=== PATIENT | male | born 1960 | race Caucasian/White ===

== ENCOUNTER 2019-01-05 11:54 | Emergency (ER) | payer BC ==
--- NOTE | 2019-01-05 12:49 | RAD REPORT ---
EXAM DESCRIPTION: CT - Head Brain Wo Cont - 01/05/2019 12:38 pm CLINICAL HISTORY: HEADACHE Headache, drowsiness, nausea COMPARISON: <Comparisons> TECHNIQUE: All CT scans are performed using dose optimization technique as appropriate and may inclu de automated exposure control or mA/KV adjustment according to patient size. FINDINGS: No intracranial hemorrhage, hydrocephalus or extra-axial fluid collection.Mild generalized brain atrophy is present with mild periventricular and deep white matter chronic microvascular ische bonifacio changes.No areas of brain edema or evidence of midline shift. The paranasal sinuses and mastoids are clear. The calvarium is intact. IMPRESSION: No acute intracranial abnormality.
[2019-01-05 13:48] LABS: Absolute Lymphocytes (CBC) 1.6 K/uL (0.7-4.9); Absolute Monocytes 1.1 K/uL (0.1-1.3); Absolute Neutrophil 7.8 K/uL (1.8-8.0); Basophils % 0.2 % (0-1.3); Eosinophils % 0.7 % (0-4.4); Lymphocytes % 15.2 % (15.3-44.8); MPV 9.5 fL (7.6-11.3); Monocytes % 10.2 % (3.3-12.3); RBC Red Blood Cell Count 5.05 M/uL (4.33-5.43)
[2019-01-05] MEDS ORDERED: METOCLOPRAMIDE 10 MG/2mL INJ ONE (13:53)
[2019-01-05] MEDS ORDERED: DIPHENHYDRAMINE 50 MG/ML VIAL ONE (13:54)
[2019-01-05] MEDS ORDERED: NA CHLORIDE 0.9% 100 ML IV ONE (13:54)
[2019-01-05] MEDS ORDERED: KETOROLAC 30 MG/ML INJ ONE (13:54)
[2019-01-05] MEDS ORDERED: NA CHLORIDE 0.9% 1,000 ML ONE (13:54)
[2019-01-05] MEDS ORDERED: MORPHINE 4 MG/ML SYR ONE (14:49)
[2019-01-05 15:35] LABS: Albumin 3.9 g/dL (3.4-5.0); Bilirubin Total 0.5 mg/dL (0.2-1.0); Potassium 4.5 mmol/L (3.5-5.1); Protein, Total 8.6 g/dL (6.4-8.2)
--- NOTE | 2019-01-05 16:04 | RAD REPORT ---
EXAM DESCRIPTION: CT - Head angio - 01/05/2019 3:52 pm CLINICAL HISTORY: HEADACHE Headache, nausea, drowsiness COMPARISON: Head Brain Wo Cont dated 01/05/2019 TECHNIQUE: CT angiography of the head was performed with MIPs. All CT scans are performed using dose optimization technique as appropriate and may include automated exposure control or mA/KV adjustment according to patient size. FINDINGS: No evidence of aneurysm is detected. No flow-limiting stenosis or vascular malformation id entified. Antegrade flow is seen in the vertebral arteries. The vertebral arteries are codominant. The visualized dural venous sinuses are patent. IMPRESSION: No significant flow abnormality is detected.
--- NOTE | 2019-01-05 16:10 | EDPHYS ---
Physician Documentation [facility] Name: Dixon Reyna Age: 58 yrs Sex: Male : 1960 Arrival Date: 01/05/2019 Time: 11:56 Bed 26 Private MD: ED Physician Jefferson Barber HPI: 01/05 13:22 This 58 yrs old Male presents to ER via Ambulatory with complaints of catie Headache. 13:22 The patient complains of pain to the forehead, left frontal area and right frontal catie area. The patient describes the headache as aching, constant. Onset: The symptoms/episode began/occurred 2 day(s) ago. Associated signs and symptoms: The patient has no apparent associated signs or symptoms. Severity of symptoms: At its worst the pain was moderate, in the emergency department the pain is unchanged. Headache History: The patient has had previous headaches and this one is similar to previous episodes. The symptoms are alleviated by remaining still. The patient has not experienced similar symptoms in the past. Historical: - Allergies: 12:03 No Known Allergies; tw2 - Home Meds: 12:03 "unknown bp med" [Active]; allopurinol 100 mg Oral tab 1 tab once daily [Active]; tw2 pravastatin 40 mg oral tab 1 tab once daily [Active]; - PMHx: 12:03 Hypertension; Hyperlipidemia; Gout; tw2 - Immunization history:: Adult Immunizations. - Social history:: Smoking status: . - Ebola Screening: : Patient denies travel to an Ebola-affected area in the 21 days before illness onset. - Family history:: not pertinent. ROS: 13:22 Constitutional: Negative for fever, chills, and weight loss, Eyes: Negative for injury, catie pain, redness, and discharge, ENT: Negative for injury, pain, and discharge, Neck: Negative for injury, pain, and swelling, Cardiovascular: Negative for chest pain, palpitations, and edema, Respiratory: Negative for shortness of breath, cough, wheezing, and pleuritic chest pain, Abdomen/GI: Negative for abdominal pain, nausea, vomiting, diarrhea, and constipation, Back: Negative for injury and pain, : Negative for injury, bleeding, discharge, and swelling, MS/Extremity: Negative for injury and deformity, Skin: Negative for injury, rash, and discoloration, Psych: Negative for depression, anxiety, suicide ideation, homicidal ideation, and hallucinations, Allergy/Immunology: Negative for hives, rash, and allergies, Endocrine: Negative for neck swelling, polydipsia, polyuria, polyphagia, and marked weight changes, Hematologic/Lymphatic: Negative for swollen nodes, abnormal bleeding, and unusual bruising. 13:22 Neuro: Positive for headache. Exam: 13:22 Constitutional: This is a well developed, well nourished patient who is awake, alert, catie and in no acute distress. Head/Face: Normocephalic, atraumatic. Eyes: Pupils equal round and reactive to light, extra-ocular motions intact. Lids and lashes normal. Conjunctiva and sclera are non-icteric and not injected. Cornea within normal limits. Periorbital areas with no swelling, redness, or edema. ENT: Nares patent. No nasal discharge, no septal abnormalities noted. Tympanic membranes are normal and external auditory canals are clear. Oropharynx with no redness, swelling, or masses, exudates, or evidence of obstruction, uvula midline. Mucous membranes moist. Neck: Trachea midline, no thyromegaly or masses palpated, and no cervical lymphadenopathy. Supple, full range of motion without nuchal rigidity, or vertebral point tenderness. No Meningismus. Chest/axilla: Normal chest wall appearance and motion. Nontender with no deformity. No lesions are appreciated. Cardiovascular: Regular rate and rhythm with a normal S1 and S2. No gallops, murmurs, or rubs. Normal PMI, no JVD. No pulse deficits. Respiratory: Lungs have equal breath sounds bilaterally, clear to auscultation and percussion. No rales, rhonchi or wheezes noted. No increased work of breathing, no retractions or nasal flaring. Abdomen/GI: Soft, non-tender, with normal bowel sounds. No distension or tympany. No guarding or rebound. No evidence of tenderness throughout. Back: No spinal tenderness. No costovertebral tenderness. Full range of motion. Male : Normal genitalia with no discharge or lesions. Skin: Warm, dry with normal turgor. Normal color with no rashes, no lesions, and no evidence of cellulitis. MS/ Extremity: Pulses equal, no cyanosis. Neurovascular intact. Full, normal range of motion. Neuro: Awake and alert, GCS 15, oriented to person, place, time, and situation. Cranial nerves II-XII grossly intact. Motor strength 5/5 in all extremities. Sensory grossly intact. Cerebellar exam normal. Normal gait. Psych: Awake, alert, with orientation to person, place and time. Behavior, mood, and affect are within normal limits. 13:22 Neck: ROM/movement: is normal, no acute changes, Meningeal signs: are not present, Kernig's sign is negative, Brudzinski's sign is negative. Vital Signs: 12:01 BP 139 / 80; Pulse 58; Resp 17; Temp 97.9(TE); Pulse Ox 98% on R/A; Weight 102.97 kg tw2 (R); Height 5 ft. 11 in. (180.34 cm); Pain 7/10; 13:06 BP 138 / 76; Pulse 59; Resp 16; Pulse Ox 99% on R/A; Pain 7/10; ls4 14:00 BP 145 / 87; Pulse 62; Resp 16; Pulse Ox 99% on R/A; Pain 5/10; ls4 15:39 BP 142 / 79; Pulse 60; Resp 16; Pulse Ox 99% on R/A; Pain 4/10; ls4 12:01 Body Mass Index 31.66 (102.97 kg, 180.34 cm) tw2 MDM: 13:07 Patient medically screened. [facility] 13:22 Data reviewed: vital signs, nurses notes, lab test result(s), radiologic studies, CT catie scan. 01/05 13:22 Order name: CBC with Diff; Complete Time: 14:19 [facility] 01/05 13:22 Order name: Comprehensive Metabolic Panel; Complete Time: 16:04 [facility] 01/05 12:05 Order name: CT Head Brain wo Cont; Complete Time: 13:20 01/05 13:22 Order name: CT Head Angio [facility] 01/05 13:53 Order name: Labs - recollect needed; Complete Time: 14:50 01/05 14:33 Order name: Labs - recollect needed; Complete Time: 14:49 bd Administered Medications: 13:50 Drug: Benadryl 25 mg Route: IVP; Site: right antecubital; ls4 14:20 Follow up: Response: No adverse reaction; Marked relief of symptoms ls4 13:51 Drug: NS 0.9% 1000 ml Route: IV; Rate: 1 bolus; Site: right antecubital; ls4 14:51 Follow up: IV Status: Completed infusion; IV Intake: 1010ml ls4 13:51 Drug: TORadol 30 mg Route: IVP; Site: right antecubital; ls4 14:20 Follow up: Response: No adverse reaction ls4 13:51 Drug: Reglan 20 mg Route: IVP; Site: right antecubital; ls4 14:20 Follow up: Response: No adverse reaction ls4 14:33 Drug: morphine 4 mg Route: IVP; Site: right antecubital; ls4 15:12 Follow up: Response: No adverse reaction; Marked relief of symptoms ls4 Disposition: 01/05/19 16:10 Discharged to Home. Impression: Headache, Essential (primary) hypertension. - Condition is Stable. - Discharge Instructions: General Headache Without Cause, Hypertension, Hypertension, Moya-[id number]-[id number], How to Take Your Blood Pressure, [id number]-kh-[id number], General Headache Without Cause, [id number]-lr-[id number], Managing Your Hypertension. - Prescriptions for Fioricet with Codeine 50- 325-40-30 mg Oral capsule - take 1 capsule by ORAL route every 4 hours as needed not to exceed 6 capsules per 24hrs; 24 capsule. Zofran 4 mg Oral Tablet - take 1 tablet by ORAL route every 12 hours As needed; 20 tablet. - Medication Reconciliation Form, Thank You Letter, Antibiotic Education, Prescription Opioid Use form. - Follow up: Private Physician; When: 2 - 3 days; Reason: Recheck today's complaints, Continuance of care, Re-evaluation by your physician. - Problem is new. - Symptoms have improved. Signatures: Dispatcher [employer] Kassandra Roberto Corey, MD MD cha Williams, Irene, RN RN iw Leanna Robins RN RN tw2 Simona Hood RN RN ls4 Corrections: (The following items were deleted from the chart) 16:55 16:10 01/05/2019 16:10 Discharged to Home. Impression: Headache; Essential (primary) ls4 hypertension. Condition is Stable. Discharge Instructions: General Headache Without Cause, General Headache Without Cause, [id number], Hypertension, Hypertension, Ckqc-xr-Rezn, How to Take Your Blood Pressure, Iusx-al-Aocc, Managing Your Hypertension. Prescriptions for Fioricet with Codeine 90-404-47-30 mg Oral capsule - take 1 capsule by ORAL route every 4 hours as needed not to exceed 6 capsules per 24hrs; 24 capsule, Zofran 4 mg Oral Tablet - take 1 tablet by ORAL route every 12 hours As needed; 20 tablet. and Forms are Medication Reconciliation Form, Thank You Letter, Antibiotic Education, Prescription Opioid Use. Follow up: Private Physician; When: 2 - 3 days; Reason: Recheck today's complaints, Continuance of care, Re-evaluation by your physician. Problem is new. Symptoms have improved. catie
--- NOTE | 2019-01-05 16:10 | ER ---
Nurse's Notes [facility] Name: Dixon Reyna Age: 58 yrs Sex: Male : 1960 Arrival Date: 01/05/2019 Time: 11:56 Bed 26 Private MD: Diagnosis: Headache;Essential (primary) hypertension Presentation: 01/05 11:59 Presenting complaint: Patient states: i have had a headache since Friday, Friday i tw2 was nauseous and throwing up, i have only had crackers and gatoraide since then, +abdominal pain, denies D. Transition of care: patient was not received from another setting of care. Onset of symptoms was January 05, 2019. Risk Assessment: Do you want to hurt yourself or someone else? Patient reports no desire to harm self or others. Initial Sepsis Screen: Does the patient meet any 2 criteria? No. Patient's initial sepsis screen is negative. Does the patient have a suspected source of infection? No. Patient's initial sepsis screen is negative. Care prior to arrival: None. 11:59 Method Of Arrival: Ambulatory tw2 11:59 Acuity: RANDALL 3 tw2 Triage Assessment: 12:00 Headache History: The patient has had previous headaches and this one is similar to tw2 previous episodes. General: Appears in no apparent distress. Behavior is calm, cooperative, appropriate for age. Pain: Pain currently is 7 out of 10 on a pain scale. Pain began 2-3 days ago. Also complains of nausea. Neuro: Reports headache. GI: Reports lower abdominal pain, upper abdominal pain, nausea. Historical: - Allergies: 12:03 No Known Allergies; tw2 - Home Meds: 12:03 "unknown bp med" [Active]; allopurinol 100 mg Oral tab 1 tab once daily [Active]; tw2 pravastatin 40 mg oral tab 1 tab once daily [Active]; - PMHx: 12:03 Hypertension; Hyperlipidemia; Gout; tw2 - Immunization history:: Adult Immunizations. - Social history:: Smoking status: . - Ebola Screening: : Patient denies travel to an Ebola-affected area in the 21 days before illness onset. - Family history:: not pertinent. Screenin:13 Abuse screen: Denies threats or abuse. Denies injuries from another. Nutritional ls4 screening: No deficits noted. Tuberculosis screening: No symptoms or risk factors identified. Fall Risk None identified. Assessment: 13:17 Pain:. ls4 13:17 Pain: Complains of pain in right frontal area and left frontal area and forehead Pain ls4 currently is 7 out of 10 on a pain scale. 13:17 Neuro: Level of Consciousness is awake, alert, obeys commands, Oriented to person, ls4 place, time, situation, Collet Maker are equal bilaterally. Respiratory: Airway is patent Respiratory effort is even, unlabored, Respiratory pattern is regular, Breath sounds are clear bilaterally. Musculoskeletal: No deficits noted. 14:30 Reassessment: Patient and/or family updated on plan of care and expected duration. Pain ls4 level reassessed. Patient is alert, oriented x 3, equal unlabored respirations, skin warm/dry/pink. 15:30 Reassessment: Patient and/or family updated on plan of care and expected duration. Pain ls4 level reassessed. Patient is alert, oriented x 3, equal unlabored respirations, skin warm/dry/pink. 16:30 Reassessment: Patient and/or family updated on plan of care and expected duration. Pain ls4 level reassessed. Patient is alert, oriented x 3, equal unlabored respirations, skin warm/dry/pink. Vital Signs: 12:01 BP 139 / 80; Pulse 58; Resp 17; Temp 97.9(TE); Pulse Ox 98% on R/A; Weight 102.97 kg tw2 (R); Height 5 ft. 11 in. (180.34 cm); Pain 7/10; 13:06 BP 138 / 76; Pulse 59; Resp 16; Pulse Ox 99% on R/A; Pain 7/10; ls4 14:00 BP 145 / 87; Pulse 62; Resp 16; Pulse Ox 99% on R/A; Pain 5/10; ls4 15:39 BP 142 / 79; Pulse 60; Resp 16; Pulse Ox 99% on R/A; Pain 4/10; ls4 12:01 Body Mass Index 31.66 (102.97 kg, 180.34 cm) tw2 ED Course: 11:56 Patient arrived in ED. mr 12:00 Triage completed. tw2 12:01 Arm band placed on. tw2 12:39 CT Head Brain wo Cont In Process Unspecified. EDMS 13:07 Jefferson Barber MD is Attending Physician. [facility] 13:13 Simona Hood, RN is Primary Nurse. ls4 13:13 Patient has correct armband on for positive identification. Bed in low position. Call ls4 light in reach. Side rails up X 1. nurse monitoring on. Pulse ox on. NIBP on. Verbal reassurance given. 13:13 No provider procedures requiring assistance completed. ls4 14:17 Lab(s) recollected, by me, sent to lab. Missed attempt(s): 20 gauge in left antecubital dh3 area. Bleeding controlled, band aid applied, catheter tip intact. 14:50 Radiology exam delayed due to lab results not completed at this time. (BUN/Creatinine). 15:52 CT completed. Patient tolerated procedure well. Patient moved to CT. Patient moved back ri from CT. 15:54 CT Head Angio In Process Unspecified. EDMS 16:52 IV discontinued, intact, bleeding controlled, No redness/swelling at site. Pressure ls4 dressing applied. Administered Medications: 13:50 Drug: Benadryl 25 mg Route: IVP; Site: right antecubital; ls4 14:20 Follow up: Response: No adverse reaction; Marked relief of symptoms ls4 13:51 Drug: NS 0.9% 1000 ml Route: IV; Rate: 1 bolus; Site: right antecubital; ls4 14:51 Follow up: IV Status: Completed infusion; IV Intake: 1010ml ls4 13:51 Drug: TORadol 30 mg Route: IVP; Site: right antecubital; ls4 14:20 Follow up: Response: No adverse reaction ls4 13:51 Drug: Reglan 20 mg Route: IVP; Site: right antecubital; ls4 14:20 Follow up: Response: No adverse reaction ls4 14:33 Drug: morphine 4 mg Route: IVP; Site: right antecubital; ls4 15:12 Follow up: Response: No adverse reaction; Marked relief of symptoms ls4 Intake: 14:51 IV: 1010ml; Total: 1010ml. ls4 Outcome: 16:10 Discharge ordered by . [facility] 16:51 Discharged to home ambulatory, with significant other. ls4 16:51 Condition: good 16:51 Discharge instructions given to patient, significant other, Instructed on discharge instructions, follow up and referral plans. medication usage, safety practices, Demonstrated understanding of instructions, follow-up care, medications, Prescriptions given X 2. 16:55 Patient left the ED. ls4 Signatures: Dispatcher [employer] EDJefferson Andrade MD MD cha Rivera, Shaneka Tobin, Leanna Flores, RN RN tw2 Lenny Verma, [place] [id number] Simona Hood RN RN ls4
== END 2019-01-05 16:55 | disposition home or self-care (01) ==
LOC: ER 11:54
DX: I10 Essential (primary) hypertension (principal); E78.5 Hyperlipidemia, unspecified; M10.9 Gout, unspecified
CPT/HCPCS: 36415; 70450; 70496; 80053; 85025; 96361; 96374; 96375; 99285; J2765; J7030; Q9967